=== PATIENT | female | born 1965 | race Caucasian/White ===

== ENCOUNTER → 2022-11-11 | Outpatient (CLI) | payer BC | LOC: M PLAIMG 08:53 | PROVIDERS: ATTEND Internal Medicine | DX: D37.8 Neoplasm of uncertain behavior of other specified digestive organs (principal); K80.20 Calculus of gallbladder without cholecystitis without obstruction ==

== ENCOUNTER → 2024-02-15 | Outpatient (CLI) | payer BC ==
[~2024-02-15] MED LIST: PROHANCE 279.3MG/ML 15ML VIAL ONE
== END ==
LOC: M PLAIMG 12:13
PROVIDERS: ATTEND Nurse Practitioner Family
DX: K86.89 Other specified diseases of pancreas (principal); K76.9 Liver disease, unspecified; Z12.11 Encounter for screening for malignant neoplasm of colon; K21.9 Gastro-esophageal reflux disease without esophagitis; K80.20 Calculus of gallbladder without cholecystitis without obstruction; N28.1 Cyst of kidney, acquired
CPT/HCPCS: 74183; A9576

== ENCOUNTER → 2025-03-17 | Outpatient (CLI) | payer BC | LOC: M PLAIMG 09:20 | DX: K86.2 Cyst of pancreas (principal) | CPT/HCPCS: 74183; A9579 ==